=== PATIENT | female | born 1950 | race Caucasian/White ===

== ENCOUNTER 2024-03-24 09:58 | Outpatient (AMB) | payer MEDICARE, OTHER, SELFPAY ==
[2024-03-24 10:23] VITALS: BP 120/74; PULSE 60; O2SAT 98; BMI 30.7
--- NOTE | 2024-03-24 10:23 | A.OFFVIS_ITS ---
Vital Signs 03/24/24 10:23 Height 5 ft 3 in Weight 173 lb 4.533 oz BMI 30.7 BP 120/74 Blood Pressure Location Lt brachial Position Sitting Pulse 60 Pulse Oximetry (%) 98 Oxygen Delivery Method Room Air Intake Visit Reasons: Myositis/pt aware she will expedite the rec Intake Note: Patient presents today with symptoms of myositis. Accompanied by: Daughter Allergies cetirizine [From Zyrtec] Allergy (Mild, Verified 03/24/24 10:28) throat closed HPI HPI Myositis/pt aware she will expedite the rec: Details: She feels well. Occasionally she has left shoulder pain. History of adhesive capsulitis in the past. No functional limitation. No recent infections. 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 No records received from [facility]. [facility] Surgical History (Updated 03/24/24 @ 10:38 by Shyann Foley CMA) History of biopsy Family History (Updated 03/24/24 @ 10:38 by Shyann Foley CMA) Mother Stroke Father Stroke Maternal Aunt Stroke Sister Hyperthyroidism Kidney disease Social History (Updated 03/24/24 @ 10:35 by Shyann Foley CMA) Alcohol intake: current Alcohol intake frequency: holidays/special occasions only Alcohol type: wine Patient Tobacco Use Status: Never used Tobacco Use of substances other than those prescribed or required for medical reasons: No Review of Systems Const All systems reviewed & are unremarkable except as noted in HPI and below Physical Exam Vital Signs: Last Vital Signs Pulse 60 03/24/24 10:23 BP 120/74 03/24/24 10:23 Pulse Ox 98 03/24/24 10:23 Oxygen Delivery Method Room Air 03/24/24 10:23 BMI result Body Mass Index 30.7 Const Other: General: Comfortable CVS: RRR Respiratory: clear to auscultation bilaterally. Good respiratory effort Skin: No lesions seen MSK: 5/5 power upper extremity lower extremity. No synovitis. Tender right 2nd MCP. Good range of motion of upper extremity and lower extremityies. 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 Clinically stable. She has had mild elevation in muscle enzymes in the past requiring reintroduction of IVIG to maintain remission. We will obtain labs for disease monitoring this visit. Last IVIG was in October. Code(s): G72.49 - Other inflammatory and immune myopathies, not elsewhere classified Category: Medical Plan: Labs for disease and drug monitoring ordered. Patient requests labs to be done at a facility near her home. We will consider re-dosing IVIG if muscle enzymes are trending up. Medical records requested from [facility] Return to clinic in 3 months (2) Hair loss: Comment: With balding anterior frontal region of unclear etiology. We will rule out thyroid disease. Less likely necrotizing autoimmune myositis is contributing as she is clinically quiescent. I recommend dermatology evaluation if thyroid function test is normal. Code(s): L65.9 - Nonscarring hair loss, unspecified Category: Medical Plan: TSH ordered Orders: Orders Aspartate Amino Transferase Today G72.49 - Other inflammatory and immune myopathies, not elsewhere classified Erythrocyte Sedimentation Rate Today G72.49 - Other inflammatory and immune myopathies, not elsewhere classified Complete Blood Count Auto Diff Today G72.49 - Other inflammatory and immune myopathies, not elsewhere classified CK, Total+Isoenzymes, Serum Today G72.49 - Other inflammatory and immune myopathies, not elsewhere classified Creatinine Today G72.49 - Other inflammatory and immune myopathies, not elsewhere classified Alanine Aminotransferase 06/22/24 G72.49 - Other inflammatory and immune myopathies, not elsewhere classified Alanine Aminotransferase 03/14/26 G72.49 - Other inflammatory and immune myopathies, not elsewhere classified Alanine Aminotransferase 12/19/24 G72.49 - Other inflammatory and immune myopathies, not elsewhere classified Alanine Aminotransferase 09/10/26 G72.49 - Other inflammatory and immune myopathies, not elsewhere classified Alanine Aminotransferase 12/09/26 G72.49 - Other inflammatory and immune myopathies, not elsewhere classified Aldolase Today G72.49 - Other inflammatory and immune myopathies, not elsewhere classified Aldolase 03/19/25 G72.49 - Other inflammatory and immune myopathies, not elsewhere classified Aldolase 06/12/26 G72.49 - Other inflammatory and immune myopathies, not elsewhere classified CK, Total+Isoenzymes, Serum Today G72.49 - Other inflammatory and immune myopathies, not elsewhere classified CK, Total+Isoenzymes, Serum 06/22/24 G72.49 - Other inflammatory and immune myopathies, not elsewhere classified CK, Total+Isoenzymes, Serum 12/19/24 G72.49 - Other inflammatory and immune myopathies, not elsewhere classified CK, Total+Isoenzymes, Serum 03/19/25 G72.49 - Other inflammatory and immune myopathies, not elsewhere classified CK, Total+Isoenzymes, Serum 06/17/25 G72.49 - Other inflammatory and immune myopathies, not elsewhere classified CK, Total+Isoenzymes, Serum 09/15/25 G72.49 - Other inflammatory and immune myopathies, not elsewhere classified CK, Total+Isoenzymes, Serum 12/14/25 G72.49 - Other inflammatory and immune myopathies, not elsewhere classified CK, Total+Isoenzymes, Serum 03/14/26 G72.49 - Other inflammatory and immune myopathies, not elsewhere classified CK, Total+Isoenzymes, Serum 09/10/26 G72.49 - Other inflammatory and immune myopathies, not elsewhere classified CK, Total+Isoenzymes, Serum 12/09/26 G72.49 - Other inflammatory and immune myopathies, not elsewhere classified C Reactive Protein 06/22/24 G72.49 - Other inflammatory and immune myopathies, not elsewhere classified C Reactive Protein 09/20/24 G72.49 - Other inflammatory and immune myopathies, not elsewhere classified C Reactive Protein 12/19/24 G72.49 - Other inflammatory and immune myopathies, not elsewhere classified C Reactive Protein 03/19/25 G72.49 - Other inflammatory and immune myopathies, not elsewhere classified C Reactive Protein 06/17/25 G72.49 - Other inflammatory and immune myopathies, not elsewhere classified C Reactive Protein 09/15/25 G72.49 - Other inflammatory and immune myopathies, not elsewhere classified C Reactive Protein 12/14/25 G72.49 - Other inflammatory and immune myopathies, not elsewhere classified C Reactive Protein 03/14/26 G72.49 - Other inflammatory and immune myopathies, not elsewhere classified C Reactive Protein 09/10/26 G72.49 - Other inflammatory and immune myopathies, not elsewhere classified Aspartate Amino Transferase 09/20/24 G72.49 - Other inflammatory and immune myopathies, not elsewhere classified Aspartate Amino Transferase 12/19/24 G72.49 - Other inflammatory and immune myopathies, not elsewhere classified Aspartate Amino Transferase 06/17/25 G72.49 - Other inflammatory and immune myopathies, not elsewhere classified Aspartate Amino Transferase 03/14/26 G72.49 - Other inflammatory and immune myopathies, not elsewhere classified Aspartate Amino Transferase 12/09/26 G72.49 - Other inflammatory and immune myopathies, not elsewhere classified Complete Blood Count Auto Diff 06/22/24 G72.49 - Other inflammatory and immune myopathies, not elsewhere classified Complete Blood Count Auto Diff 09/20/24 G72.49 - Other inflammatory and immune myopathies, not elsewhere classified Complete Blood Count Auto Diff 12/19/24 G72.49 - Other inflammatory and immune myopathies, not elsewhere classified Complete Blood Count Auto Diff 03/19/25 G72.49 - Other inflammatory and immune myopathies, not elsewhere classified Complete Blood Count Auto Diff 03/14/26 G72.49 - Other inflammatory and immune myopathies, not elsewhere classified Creatinine 06/22/24 G72.49 - Other inflammatory and immune myopathies, not elsewhere classified Creatinine 12/19/24 G72.49 - Other inflammatory and immune myopathies, not elsewhere classified Creatinine 12/09/26 G72.49 - Other inflammatory and immune myopathies, not elsewhere classified Erythrocyte Sedimentation Rate Today G72.49 - Other inflammatory and immune myopathies, not elsewhere classified Erythrocyte Sedimentation Rate 06/22/24 G72.49 - Other inflammatory and immune myopathies, not elsewhere classified Erythrocyte Sedimentation Rate 09/20/24 G72.49 - Other inflammatory and immune myopathies, not elsewhere classified Erythrocyte Sedimentation Rate 06/17/25 G72.49 - Other inflammatory and immune myopathies, not elsewhere classified Erythrocyte Sedimentation Rate 09/15/25 G72.49 - Other inflammatory and immune myopathies, not elsewhere classified Erythrocyte Sedimentation Rate 12/14/25 G72.49 - Other inflammatory and immune myopathies, not elsewhere classified Erythrocyte Sedimentation Rate 03/14/26 G72.49 - Other inflammatory and immune myopathies, not elsewhere classified Alanine Aminotransferase Today G72.49 - Other inflammatory and immune myopathies, not elsewhere classified C Reactive Protein Today G72.49 - Other inflammatory and immune myopathies, not elsewhere classified Aldolase Today G72.49 - Other inflammatory and immune myopathies, not elsewhere classified TSH reflex Free T4 Today L65.9 - Nonscarring hair loss, unspecified Alanine Aminotransferase Today G72.49 - Other inflammatory and immune myopathies, not elsewhere classified Alanine Aminotransferase 03/19/25 G72.49 - Other inflammatory and immune myopathies, not elsewhere classified Alanine Aminotransferase 06/17/25 G72.49 - Other inflammatory and immune myopathies, not elsewhere classified Alanine Aminotransferase 09/15/25 G72.49 - Other inflammatory and immune myopathies, not elsewhere classified Alanine Aminotransferase 12/14/25 G72.49 - Other inflammatory and immune myopathies, not elsewhere classified Alanine Aminotransferase 09/20/24 G72.49 - Other inflammatory and immune m yopathies, not elsewhere classified Alanine Aminotransferase 06/12/26 G72.49 - Other inflammatory and immune myopathies, not elsewhere classified Aldolase 06/22/24 G72.49 - Other inflammatory and immune myopathies, not elsewhere classified Aldolase 09/20/24 G72.49 - Other inflammatory and immune myopathies, not elsewh ere classified Aldolase 12/19/24 G72.49 - Other inflammatory and immune myopathies, not elsewhere classified Aldolase 06/17/25 G72.49 - Other inflammatory and immune myopathies, not elsewhere classified Aldolase 09/15/25 G72.49 - Other inflammatory and immune myopathies, not elsewhere classified Aldolase 12/14/25 G72.49 - Other inflammatory and immune myopathies, not elsewhere classified Aldolase 03/14/26 G72.49 - Other inflammatory and immune myopathies, not e lsewhere classified Aldolase 09/10/26 G72.49 - Other inflammatory and immune myopathies, not elsewhere classified Aldolase 12/09/26 G72.49 - Other inflammatory and immune myopathies, not elsewhere classified Aspartate Amino Transferase Today G72.49 - Other inflammatory and immune myopathies, not elsewhere classified C Reactive Protein Today G72.49 - Other inflammatory and immune myopathies, not elsewhere classified CK, Total+Isoenzymes, Serum 09/20/24 G72.49 - Other inflammatory and immune myopathies, not elsewhere classified CK, Total+Isoenzymes, Serum 06/12/26 G72.49 - Other inflammatory and immune myopathies, not elsewhere classified C Reactive Protein 06/12/26 G72.49 - Other inflammatory and immune myopathies, not elsewhere classified C Reactive Protein 12/09/26 G72.49 - Other inflammatory and immune myopathies, not elsewhere classified Aspartate Amino Transferase 06/22/24 G72.49 - Other inflammatory and immune myopathies, not elsewhere classified Aspartate Amino Transferase 03/19/25 G72.49 - Other inflammatory and immune myopathies, not elsewhere classified Aspartate Amino Transferase 09/15/25 G72.49 - Other inflammatory and immune myopathies, not elsewhere classified Aspartate Amino Transferase 12/14/25 G72.49 - Other inflammatory and immune myopathies, not elsewhere classified Aspartate Amino Transferase 06/12/26 G72.49 - Other inflammatory and immune myopathies, not elsewhere classified Aspartate Amino Transferase 09/10/26 G72.49 - Other inflammatory and immune myopathies, not elsewhere classified Complete Blood Count Auto Diff G72.49 - Other inflammatory and immune myopathies, not elsewhere classified Complete Blood Count Auto Diff 06/17/25 G72.49 - Other inflammatory and immune myopathies, not elsewhere classified Complete Blood Count Auto Diff 09/15/25 G72.49 - Other inflammatory and immune myopathies, not elsewhere classified Complete Blood Count Auto Diff 12/14/25 G72.49 - Other inflammatory and immune myopathies, not elsewhere classified Complete Blood Count Auto Diff 06/12/26 G72.49 - Other inflammatory and immune myopathies, not elsewhere classified Complete Blood Count Auto Diff 09/10/26 G72.49 - Other inflammatory and immune myopathies, not elsewhere classified Complete Blood Count Auto Diff 12/09/26 G72.49 - Other inflammatory and immune myopathies, not elsewhere classified Creatinine Today G72.49 - Other inflammatory and immune myopathies, not elsewhere classified Creatinine 09/20/24 G72.49 - Other inflammatory and immune myopathies, not elsewhere classified Creatinine 03/19/25 G72.49 - Other inflammatory and immune myopathies, not elsewhere classified Creatinine 06/17/25 G72.49 - Other inflammatory and immune myopathies, not elsewhere classified Creatinine 09/15/25 G72.49 - Other inflammatory and immune myopathies, not elsewhere classified Creatinine 12/14/25 G72.49 - Other inflammatory and immune myopathies, not elsewhere classified Creatinine 03/14/26 G72.49 - Other inflammatory and immune myopathies, not elsewhere classified Creatinine 06/12/26 G72.49 - Other inflammatory and immune myopathies, not elsewhere classified Creatinine 09/10/26 G72.49 - Other inflammatory and immune myopathies, not elsewhere classified Erythrocyte Sedimentation Rate 12/19/24 G72.49 - Other inflammatory and immune myopathies, not elsewhere classified Erythrocyte Sedimentation Rate 03/19/25 G72.49 - Other inflammatory and immune myopathies, not elsewhere classified Erythrocyte Sedimentation Rate 06/12/26 G72.49 - Other inflammatory and immune myopathies, not elsewhere classified Erythrocyte Sedimentation Rate 09/10/26 G72.49 - Other inflammatory and immune myopathies, not elsewhere classified Erythrocyte Sedimentation Rate 12/09/26 G72.49 - Other inflammatory and immune myopathies, not elsewhere classified Coding Level of Care Code Est Pt Level 4 (32594) Complex EM visit Add On G2211 Diagnoses Autoimmune necrotizing myopathy G72.49 Hair loss L65.9
== END 2024-03-24 11:17 | disposition home or self-care (01) ==
PROVIDERS: PCP Family Medicine; Visit Provider Internal Medicine Rheumatology
DX: G72.49 Other inflammatory and immune myopathies, not elsewhere classified (principal); L65.9 Nonscarring hair loss, unspecified
CPT/HCPCS: 99214; G2211

== ENCOUNTER → 2024-03-24 09:58 | Outpatient (BNVA) | payer MEDICARE, OTHER, SELFPAY | PROVIDERS: PCP Family Medicine; Visit Provider Internal Medicine Rheumatology | DX: G72.49 Other inflammatory and immune myopathies, not elsewhere classified (principal); L65.9 Nonscarring hair loss, unspecified | CPT/HCPCS: 99212 ==

== ENCOUNTER 2024-04-04 09:39 | Outpatient (REF) | payer MEDICARE, OTHER, SELFPAY ==
[2024-04-04 11:20] LABS: MANUAL DIFF FLAG NO
[2024-04-04 11:23] LABS: Basophils Absolute Auto 0.1 X10*3/uL (0.0-0.2); Eosinophils Absolute Auto 0.2 X10*3/uL (0.0-0.4); Eosinophils Percent Auto 2.7 % (0-4); Hemoglobin 14.1 g/dl (12.0-16.0); Imm Gran Abs Auto 0.02 X10*3/uL (0.00-0.03); Imm Gran Pct Auto 0.3 % (0.0-0.4); Lymphocytes Absolute Auto 2.1 X10*3/uL (1.2-4.9); Lymphocytes Percent Auto 34.6 % (20-40); Mean Corpuscular HGB Conc 33.6 g/dl (31.0-35.0); Mean Corpuscular Hemoglobin 31.7 pg (27.0-33.0); Mean Corpuscular Volume 94.4 fL (80.0-98.0); Mean Platelet Volume 11.1 fL (9.4-12.3); Monocytes Absolute Auto 0.6 X10*3/uL (0.1-1.2); Monocytes Percent Auto 10.1 % (2-11); Neutrophils Percent Auto 51.3 % (45-73); Platelet Count 238 X10*3/uL (160-400); Red Blood Count 4.45 X10*6/uL (4.20-5.50); Red Cell Distribution Width 12.6 % (11.0-16.0); White Blood Count 5.9 X10*3/uL (4.8-10.8)
[2024-04-04 12:01] LABS: Erythrocyte Sedimentation Rate 10 MM/HR (0-20)
[2024-04-04 12:12] LABS: Alanine Aminotransferase 22 U/L (0-31); Aspartate Amino Transferase 28 U/L (5-31); C Reactive Protein 0.24 mg/dL (< or = 0.50); Estimated Glomerular Filt Rate 45
[2024-04-07 21:48] LABS: Aldolase 5.1 U/L (<=8.1)
[2024-04-13 23:28] LABS: CK-BB None Detected (None Detected); CK-MB 0 % (<5); CK-MM 95 % (95-100); Creatine Kinase Isoenzyme Itrp MACRO CK TYPE 1; Creatine Kinase,Total,Serum 297 U/L (29-143)
== END 2024-04-04 09:40 | disposition home or self-care (01) ==
LOC: HO.WFDLDS 09:39
PROVIDERS: Visit Provider Internal Medicine Rheumatology
DX: G72.49 Other inflammatory and immune myopathies, not elsewhere classified (principal); L65.9 Nonscarring hair loss, unspecified
CPT/HCPCS: 36415; 82085; 82552; 82565; 84443; 84450; 84460; 85025; 85652; 86140

== ENCOUNTER 2024-06-22 13:04 | Outpatient (REF) | payer MEDICARE, OTHER, SELFPAY ==
--- OUTSIDE RECORDS SUMMARY | 2024-06-22 13:16 | XMS_ITS | Continuity of Care Document ---
Author Organization [facility] Address [address] [address]- [facility] Name Relationship Address Phone YANNI POPE Other Unknown Unavailable LEYDA CATALAN child Unknown Unavailable NIKO, LEYDA child Unknown Unavailable Care Team Providers Care Door To Door Fundraising Collector Name Role Phone Alfie PEREYRA, Gerardo Hall Primary Care Physician Encounter [facility] Date(s): 06/07/24 - 06/14/[address] [id number] Attending Physician: Luci Cantrell MD Admitting Physician: Luci Cantrell MD Referring Physician: Luci Cantrell MD Encounter Type: Office Visit Allergies, Adverse Reactions, Alerts Substance Criticality Severity Reaction Reaction Severity Status ZyrTEC throat closing Activ e Immunizations Given and Recorded Vaccine Date Status Refusal Reason influenza virus vaccine, inactivated 1 01/31/22 Re corded influenza virus vaccine, inactivated 02/06/21 Ash rded influenza virus vaccine, inactivated 01/14/18 Ash rded influenza virus vaccine, inactivated 02/29/16 Ash rded influenza virus vaccine, inactivated 02/01/15 Ash rded influenza virus vaccine, inactivated 03/13/14 Ash rded influenza virus vaccine, inactivated 02/11/13 Ash rded influenza virus vaccine, inactivated 05/12/12 Ash rded influenza virus vaccine, inactivated 02/27/10 Ash rded influenza virus vaccine, inactivated 01/24/09 Ash rded influenza virus vaccine, inactivated 02/01/08 Ash rded SARS-CoV-2 (COVID-19) mRNA-1273 vaccine 03/22/21 R ecorded SARS-CoV-2 (COVID-19) mRNA-1273 vaccine 07/27/20 G iven SARS-CoV-2 (COVID-19) mRNA-1273 vaccine 07/27/20 R ecorded SARS-CoV-2 (COVID-19) mRNA-1273 vaccine 06/29/20 G iven SARS-CoV-2 (COVID-19) mRNA-1273 vaccine 06/29/20 R ecorded tetanus-diphtheria toxoids (Td) 02/02/20 Recorded tetanus-diphtheria toxoids (Td) 10/31/04 Recorded pneumococcal 13-valent vaccine 08/24/15 Recorded pneumococcal 23-valent vaccine 03/22/14 Recorded Zoster Vaccine Live 02/11/13 Recorded Influenza Virus Vaccine (oldterm) 06/12/11 Recorde d tetanus/diphtheria/pertussis, acel(Tdap) 06/12/11 Recorded 1Result Comment: [facility]# [id number] Medications amLODIPine 2.5 mg oral tablet 2.5 mg, 1, tablet, By Mouth, Daily, # 90 tablet, Refills 3, Tot. Refills 3, Maintenance, 06/07/24 9:08:00 AM EST, Route to Pharmacy Electronically, [facility], Partial fill upon patient request if the prescription is for a schedule II opioid drug., 160, cm, 06/07/24 8:58:00 EST, Height, 75.6, kg, 11/04/23 10:25:00 EDT, Dry Weight Start Date: 06/07/24 Status: Ordered Quantity: 90.0 Unit: tablet Repeat number: 4 Aspirin Low Dose 81 mg oral delayed release tablet 1 tablet = 81 mg, By Mouth, Daily, # 30 tablet, 0 Refills, Maintenance, 09/05/20 8:56:00 AM EDT, [facility] Tablet, Partial fill upon patient request if the prescription is for a schedule II opioid drug. Start Date: 09/05/20 Status: Ordered Quantity: 30.0 Unit: tablet Repeat number: 1 D3 with Calcium 0 Refills, Maintenance, 01/20/22 1:48:00 PM EDT, Partial fill upon patient request if the prescription is for a schedule II opioid drug. Start Date: 01/20/22 Status: Ordered Repeat number: 1 lisinopril 40 mg oral tablet 1 tablet, By Mouth, Daily, # 90 tablet, 1 Refills, Maintenance, 03/14/24 7:11:00 PM EST, [facility], 160, cm, 09/30/23 13:20:00 EDT, Height, 75.6, kg, 11/04/23 10:25:00 EDT, Dry Weight Start Date: 03/14/24 Status: Ordered Quantity: 90.0 Unit: tablet Repeat number: 1 Multivitamin Daily, 0 Refills, Maintenance, 09/05/20 8:56:00 AM EDT, Partial fill upon patient request if the prescription is for a schedule II opioid drug. Start Date: 09/05/20 Status: Ordered Repeat number: 1 ondansetron 4 mg oral tablet 1 tablet = 4 mg, By Mouth, Every 8 hours, PRN Nausea & Vomiting, # 20 tablet, 0 Refills, Maintenance, 05/23/22 4:33:00 PM EST, Tablet, [facility]/pharmacy #[id number], Partial fill upon patient request if the prescription is for a schedule II opioid drug., 160, cm, 05/14/22 16:29:00 EST, Height, 68.6, kg, 05/23/22 11:12:00 EST, Dry Weight Start Date: 05/23/22 Status: Ordered Quantity: 20.0 Unit: tablet Repeat number: 1 Toprol XL 25 mg oral tablet, extended release 25 mg, 1, tablet, By Mouth, Daily, # 90 tablet, Refills 3, Tot. Refills 3, Maintenance, 07/07/23 2:29:00 PM EST, Route to Pharmacy Electronically, [facility]/pharmacy #[id number], Partial fill upon patient request if the prescription is for a schedule II opioid drug., 160, cm, 06/18/23 12:34:00 EST, Height, 68.2,kg, 06/02/22 1:13:00 EST, Dry Weight Start Date: 07/07/23 Status: Ordered Quantity: 90.0 Unit: tablet Repeat number: 4 Zetia 10 mg oral tablet 1 tablet = 10 mg, By Mouth, Daily, # 90 tablet, 3 Refills, Maintenance, 06/08/24 12:58:00 PM EST, Tablet, [facility], Partial fill upon patient request if the prescription is fora schedule II opioid drug., 160, cm, 06/07/24 8:58:00 EST, Height, 75.6, kg, 11/04/23 10:25:00 EDT,Dry Weight Start Date: 06/08/24 Status: Ordered Quantity: 90.0 Unit: tablet Repeat number: 4 Problem List Condition Confirmation Course Effective Dates Status H ealth Status Informant Anxiety Confirmed Active Autoimmune myopathy Confirmed Active Hyperlipidemia Confirmed Active Hypertension Confirmed Active Obese class I Confirmed Active Osteoporosis Confirmed Active Vital Signs Most recent to oldest [Reference Range]: 1 Height 160 cm (06/07/24 8:58 AM) Weight 78.0 kg (06/07/24 8:58 AM) Oxygen Saturation [94-100 %] 98 % (06/07/24 8:58 AM) Pulse Rate [55-90 bpm] 66 bpm (06/07/24 8:58 AM) Body Mass Index [18.5-24.99 kg/m2] 30.47 kg/m2 *>HHI* (06/07/24 8:58 AM) Blood Pressure [90-138/55-84 mm Hg] 147/ 59mm Hg *H* (06/07/24 8:58 AM) Mode of Delivery (Oxygen) Room air (06/07/24 8:58 AM) Blood pressure sites Arm, left (06/07/24 8:58 AM) Weight Obtained Via Standing scale (06/07/24 8:58 AM) Social History Social History Type Response Smoking Status Never (less than 100 in lifetime) entered on: 09/05/20 Sex Sex Representation Female (finding) Cardiology Outpatient Note * Tamia PEREYRA, Luci Griffith: PERFORM Event Display: Cardiology Note Office Authored Date: [id number] Patient: ??HOSSEIN, TATI ? Age:??73 Years?Sex:??Female?:??1950?? Patient Hx Cardiology Shared Clinical Summary 1.?? Hypertension 2. ??Hyperlipidemia 3. ??Prior evaluation for palpitations with Holter showing PACs/PVCs and??10/2020 4.?? 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 Gagnon 5.?? CAD: NSTEMI with cardiac cath 01/23 with mild non obstructive CAD. History of Present Illness/Interval History ?? 72 yo female with the above history who is here for cardiology follow up. She had a syncopal spell last year and she was thought to be dehydrated aggravated by amlodipine. She is not on statin 2/2myositis. She is doing well from a cardiac standpoint. BP is??well controlled.??She is not having no cardiac sx for the most part but is occasionally having some BALL. She is walking 30 min each morning and additional 30 min throughout??the day. No difficultly during exercise.? Physical Exam Vitals & Measurements HR:??66??(Peripheral)?? BP:??147/59?? SpO2:??98%?? HT:??160??cm?? WT:??78.0??kg?? BMI:??30.47?? Weight lb/oz: 171 lb 15 oz General:??In no acute distress HEENT:??Sclerae anicteric, mucous membranes moist Cardiovascular:?Regular rhythm, normal first and second heart sounds.?No murmurs or gallops.?No JVP??Respiratory:?Clear to auscultation all lung hubbard?? Extremities: Warm,??noedema Neuro:??Nonfocal??Psych: Alert and oriented with appropriate affect. ?? LFT's normal 12/24, cre??1.1 GFR 45. Assessment/Plan HLD (hyperlipidemia) Ordered: Basic Metabolic Panel Lipid Panel ?? Orders: Amlodipine, 2.5 mg, 1, tablet, By Mouth, Daily, # 90 tablet, Refills 3, Tot. Refills 3, Maintenance, 06/07/24 9:08:00 EST, Route to Pharmacy Electronically, [facility], Partialfill upon patient request if the prescription is for a schedule... Follow up Appointment ?? # CAD:??Minimal disease in LAD and minimal luminal irregularities elsewhere by cath 01/2022.?? Noangina or dyspnea. Continue metoprolol succinate 25mg once daily and ASA 81mg once daily.?? Not on statin due to myositis. Trops ultimately thought to be due myositis. ?? # HTN: elevated today agreeable to add amlodipine 2.5 mg daily, She will follow bp at home.? # HLD: no recent labs, agreeable to labs ?? Plan amlodipine 2.5 mg daily labs, I will call and see if we should do zetia??or [id number] f/u 6 months Total Time Spent I personally spent a total of??20 minutes, including both qops-bw-wuyo and vof-eblv-ke-face time onthe date of the encounter, addressing the above diagnoses. Activities performed in this time include chart review, obtaining / reviewing history, performing amedically necessary evaluation, documentation and Ordering of Appropriate tests including medical decision making of Moderate Complexity (30-39 minutes for established patient) Problem List/Past Medical History Ongoing Anxiety Autoimmune myopathy Hyperlipidemia Hypertension Obese class I Osteoporosis Procedure/Surgical History Colonoscopy: 2011 Tonsillectomy: 1950 Tonsillectomy: 1950 Home Medications amLODIPine 2.5 mg oral tablet, 2.5 mg= 1 tablet, By Mouth, Daily, 3 refills Aspirin Low Dose 81 mg oral delayed release tablet, 81 mg= 1 tablet, By Mouth, Daily D3 with Calcium lisinopril 40 mg oral tablet, 1 tablet, By Mouth, Daily Multivitamin, Daily ondansetron 4 mg oral tablet, 4 mg= 1 tablet, By Mouth, Every 8 hours, PRN Toprol XL 25 mg oral tablet, extended release, 25 mg= 1 tablet, By Mouth, Daily, 3 refills Diagnostic Impression ECG ECG 12-Lead ?? 12:32:41 Please click on pdf link to open report ?? Signed By: Lori Joseph MD ?? ECG 12-Lead ?? 12:32:41 Ventricular Rate: 59 BPM Atrial Rate: 59 BPM P-R Interval: 162 ms QRS Duration: 80 ms Q-T Interval: 434 ms QTC Calculation(Bazett): 429 ms P [employer]: 33 degrees R [employer]: 25 degrees T [employer]: 35 degrees Sinus bradycardia Otherwise normal ECG When compared with ECG of 01-JUN-2022 19:23, No significant change was found Confirmed ?? Signed By: Jake MD, Lori A Stress Test No qualifying data available. Echo Echocardiogram - Complete ?? 08:00:18 Summary Normal left ventricular size and function with ejection fraction of 60-65%. No focal wall motion abnormalities. The left ventricular wall thickness is mildly increased. Normal right ventricular size and function. No significant valvular disease. ?? Comparison No prior study available for comparison. ?? Signature ?? Signed By: Phil Lee MD Note * Maricruz Madrid: PERFORM Event Display: Patient Education/Instruction Authored Date: Ambulatory Adult Visit Summary [facility] Office [address] [place] [address] Name: TATI CATALAN : 1950?? Visit: 06/07/2024 08:42?? Ambulatory Visit Instructions ?? Your Care Team Primary Care Provider Alfie PEREYRA, Gerardo Hall? This Visit Provider Luci Cantrell MD Your Diagnosis HLD (hyperlipidemia) Vitals Signs Pulse Rate: 66 bpm Height: 160 cm Systolic Blood Pressure:??147 mm Hg??High Weight: 78 kg Diastolic Blood Pressure: 59 mm Hg Body Mass Index:??30.47 kg/m2??Critical Oxygen Saturation: 98 % Body surface area: 1.86 What to do next Follow-Up Appointments Follow up Appointment - Ordered?-- 6 months, 06/07/24 9:11:00 EST Future Orders Comprehensive Metabolic Panel - Once, *Est. 12/17/23 +/- 28 days, Single or Recurring Future Order?? Basic Metabolic Panel - Routine, Once, 06/07/24 9:00:00 EST, Order for Today, [facility], Blood?? Lipid Panel - Routine, Once, 06/07/24 9:00:00 EST, Order for Today, [facility], Blood?? Medications The list below reflects the information in our records and provided by you today along with any changes made during this visit. Please continue your medications until treatment is completed or stopped by your provider. If this is different from the information you have or there are other questions,please contact the prescribing provider. What How Much When Instructions New Amlodipine (amLODIPine 2.5 mg oral tablet) 1 tab(s) Oral Daily Refills: 3 Pickup at [facility] Unchanged Aspirin (Aspirin Low Dose 81 mg oral delayed release tablet) 1 tab(s) Oral Daily Unchanged Calcium And Vitamin D Combination (D3 with Calcium) Unchanged Lisinopril (lisinopril 40 mg oral tablet) 1 tab(s) Oral Daily Unchanged Metoprolol (Toprol XL 25 mg oral tablet, extended release) 1 tab(s) Oral Daily Unchanged Multivitamin Daily Unchanged Ondansetron (ondansetron 4 mg oral tablet) 1 tab(s) Oral Every 8 hours as needed for Nausea & Vomiting Pharmacy Information [facility]: [address] [facility] [address] [phone] ?? What How Much When Comments Stop Taking Alendronate (alendronate 70 mg oral tablet) 1 tab(s) Oral Every week Duration: 90 Days Test Performed Below is a partial list of the tests performed during your Visit. You may have had other tests and procedures not included in this list. Please discuss all test results with your provider. Basic Metabolic Panel?-- Results Pending -- Lipid Panel?-- Results Pending -- Medications and Immunizations Administered Medications Given During Visit No medications given during this visit.?? Allergies (NKA means No Known Allergies) ZyrTEC??(throat closing) Common Emergency Awareness Tips IS IT A STROKE? Act FAST and Check for these signs: FACE Does the face look uneven? ARM Does one arm drift down? SPEECH Does their speech sound strange? TIME Call at any sign of stroke ?? Heart Attack Signs Chest discomfort: Most heart attacks involve discomfort in the center of the chest and lasts more than a few minutes, or goes away and comes back. It can feel like uncomfortable pressure, squeezing, fullness or pain. Discomfort in upper body: Symptoms can include pain or discomfort in one or both arms, back, neck, jaw or stomach. Shortness of breath: With or without discomfort. Other signs: Breaking out in a cold sweat, nausea, or lightheaded. Remember, MINUTES DO MATTER. If you experience any of these heart attack warning signs, call to get immediate medical attention! ?? Smoking can increase your chances of developing chronic health problems and can cause harmful effects to other family members in your house. If you smoke, you are strongly encouraged to quit. Please call [employer] at [phone] or [phone] ([phone]) or log in to [email or web address] for referrals to smoking cessation programs. ?? The National Suicide Prevention Hotline is available 24/11 if you or someone you know needs to find a reason to keep living. By calling 3-585-887-[place] (5227) you'll be connected to a skilled, trained counselor at a crisis center in your area. [facility] Portal You can view and manage your care through the patient portal or by using a health care isabel of your choosing. [employer] is a website that allows you to securely view your medical information including your hospital discharge summary, office visit summaries, medications and follow-up visits. You can also request appointments, renew medications, and request access to your medical information using a health care isabel of your choosing, or just ask a question. You can enroll at [email or web address] or register during your next office visit. [facility], in keeping with [facility] guidance, no longer requires face masks for staff, patientsor visitors in most situations. Similiar to time spent indoors at other locations, there is the chance that you were exposed to repiratory viruses during your time with us (such as flu or COVID-19). If you develop symptoms concerning for a viral respiratory infection, please seek testing (and treatment if indicated) from your medical provider or home test kit. ?? Disclaimer: The information provided is of a general nature and is intended to be used in conjunction with the recommendations and advice of your health care practitioner. Every effort has been made to ensure that the information provided is accurate and complete at the time it is provided to you however, as your needs change, or, as new information becomes available, different or additional instructions may be required. ?? If you have questions, please consult with your primary care provider or pharmacist, as appropriate. This information is not intended to serve as substitution for assessment and evaluation by a qualified health care provider. If you do not have a primary care provider, you may find a [facility] provider by calling [employer] at [phone]. Patient Care team information Care Team Personnel Name: Gerardo Judge MD Position: [facility] Physician - Primary Care Member Role: PCP Address: [address] [place] [address] Telecom: Name: Diya Quinones RN Position: [facility] RN Member Role: Primary Care Nurse Name: Batsheva Márquez RN Position: [facility] RN Member Role: Primary Care Nurse Name: Emi Gar RN Position: [facility] AMB Nurse Member Role: Primary Care Nurse Care Team Related Persons Name: AYNNI POPE Name: LEYDA POPE Insurance Providers Guarantor name[facility] Plan Information #: 2 Payer: [facility] Member Number: [id number] Policy Number: NA Group Number: [id number] Health Plan Information #: 1 Payer: MEDICARE PART B OUTPT Member Number: [id number] Policy Number: NA Group Number: NA
[2024-06-22 14:17] LABS: MANUAL DIFF FLAG NO
[2024-06-22 14:25] LABS: Basophils Percent Auto 0.6 % (0-2); Eosinophils Absolute Auto 0.2 X10*3/uL (0.0-0.4); Eosinophils Percent Auto 2.2 % (0-4); Hematocrit 42.9 % (37.0-47.0); Hemoglobin 14.3 g/dl (12.0-16.0); Imm Gran Abs Auto 0.02 X10*3/uL (0.00-0.03); Imm Gran Pct Auto 0.3 % (0.0-0.4); Lymphocytes Percent Auto 30.1 % (20-40); Mean Corpuscular HGB Conc 33.3 g/dl (31.0-35.0); Mean Corpuscular Hemoglobin 31.4 pg (27.0-33.0); Mean Corpuscular Volume 94.3 fL (80.0-98.0); Mean Platelet Volume 11.5 fL (9.4-12.3); Monocytes Absolute Auto 0.5 X10*3/uL (0.1-1.2); Monocytes Percent Auto 7.6 % (2-11); Neutrophils Percent Auto 59.2 % (45-73); Platelet Count 227 X10*3/uL (160-400); Red Blood Count 4.55 X10*6/uL (4.20-5.50); Red Cell Distribution Width 12.2 % (11.0-16.0); White Blood Count 6.7 X10*3/uL (4.8-10.8)
[2024-06-22 15:01] LABS: Alanine Aminotransferase 41 U/L (0-31); Aspartate Amino Transferase 39 U/L (5-31); Estimated Glomerular Filt Rate 42
[2024-06-22 15:06] LABS: Erythrocyte Sedimentation Rate 9 MM/HR (0-20)
[2024-06-26 21:33] LABS: CK-BB None Detected (None Detected); CK-MB 0 % (<5); CK-MM 95 % (95-100); Creatine Kinase Isoenzyme Itrp MACRO CK TYPE 1; Creatine Kinase,Total,Serum 545 U/L (18-225)
== END 2024-06-22 13:05 | disposition home or self-care (01) ==
LOC: HO.WFDLDS 13:04
PROVIDERS: Visit Provider Internal Medicine Rheumatology
DX: G72.49 Other inflammatory and immune myopathies, not elsewhere classified (principal)
CPT/HCPCS: 36415; 82085; 82552; 82565; 84450; 84460; 85025; 85652; 86140

== ENCOUNTER 2024-06-30 13:07 | Outpatient (AMB) | payer MEDICARE, OTHER, SELFPAY ==
--- NOTE | 2024-06-30 13:30 | MHC.OFFVIS ---
Vital Signs 06/30/24 13:33 Height 5 ft 3 in Weight 168 lb 6.931 oz BMI 29.8 BP 110/62 Blood Pressure Location Lt radial Position Sitting Pulse 56 Pulse Source Pulse Oximeter Pulse Oximetry (%) 98 Oxygen Delivery Method Room Air Intake Visit Reasons: 3 mo follow up Intake Note: pt presents today for Autoimmune necrotizing myopathy follow up. Allergies cetirizine [[facility]] Allergy (Mild, Verified 03/24/24 10:28) throat closed HPI HPI 3 mo follow up: Details: She feels well. She denies dyspnea, rash, dysphagia, weakness. She has morning stiffness in the morning but it is minimal and she is able to get up and go about her day. PFS Surgical History (Updated 03/24/24 @ 10:38 by Shyann Foley CMA) History of biopsy Family History (Updated 03/24/24 @ 10:38 by Shyann Foley CMA) Mother Stroke Father Stroke Maternal Aunt Stroke Sister Hyperthyroidism Kidney disease Social History (Updated 03/24/24 @ 10:35 by Shyann Foley CMA) Alcohol intake: current Alcohol intake frequency: holidays/special occasions only Alcohol type: wine Patient Tobacco Use Status: Never used Tobacco Review of Systems Const All systems reviewed & are unremarkable except as noted in HPI and below Physical Exam Vital Signs: Last Vital Signs Pulse 56 06/30/24 13:33 BP 110/62 06/30/24 13:33 Pulse Ox 98 06/30/24 13:33 Oxygen Delivery Method Room Air 06/30/24 13:33 BMI result Body Mass Index 29.8 Const Other: General: Comfortable CVS: RRR Respiratory: clear to auscultation bilaterally. Good respiratory effort Skin: No lesions seen MSK: 5/5 power upper extremity power. 4/5 hip and knee flexors and extensors, ankle flexors and extensors power is 5/5. No synovitis. Good range of motion of upper extremity and lower extremityies. Assessment & Plan Assessment & Plan (1) Autoimmune necrotizing myopathy: Comment: She has had mild relapse off of IVIG. 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 We discussed next steps in treatment for mild disease. I am avoiding methotrexate due to concurrent mild transaminitis. Discussed side effects, benefits and drug monitoring on mycophenolate mofetil. If disease progresses or if she has side effects on mycophenolate mofetil, she will need to restart IVIG. Azathioprine is another option for mild disease. 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 High dose prednisone caused facial flushing and was discontinued. She has had elevation in liver enzymes at initial presentation secondary to myositis. Code(s): G72.49 - Other inflammatory and immune myopathies, not elsewhere classified Category: Medical Plan: TB and hepatitis panel ordered. After results are back, I will send mycophenolate mofetil 500 mg twice a day. She will then need labs for drug monitoring 1 month after starting mycophenolate mofetil Return to clinic in 3 months (2) Hair loss: Comment: With balding anterior frontal region of unclear etiology. We will rule out thyroid disease. Less likely necrotizing autoimmune myositis is contributing as she is clinically quiescent. I recommend dermatology evaluation if thyroid function test is normal. Code(s): L65.9 - Nonscarring hair loss, unspecified Category: Medical Plan: TSH ordered Orders: Orders T Spot TB 06/30/24 G72.49 - Other inflammatory and immune myopathies, not elsewhere classified Creatine Kinase Total 1 Month G72.49 - Other inflammatory and immune myopathies, not elsewhere classified Complete Blood Count Auto Diff 1 Month Z79.60 - termination clerk (current) use of unspecified immunomodulators and immunosuppressants Erythrocyte Sedimentation Rate 1 Month G72.49 - Other inflammatory and immune myopathies, not elsewhere classified C Reactive Protein 1 Month G72.49 - Other inflammatory and immune myopathies, not elsewhere classified Hepatitis B,C Profile 06/30/24 G72.49 - Other inflammatory and immune myopathies, not elsewhere classified Aldolase 1 Month G72.49 - Other inflammatory and immune myopathies, not elsewhere classified Alanine Aminotransferase 1 Month Z79.60 - termination clerk (current) use of unspecified immunomodulators and immunosuppressants Aspartate Amino Transferase 1 Month Z79.60 - [facility]FP (current) use of unspecified immunomodulators and immunosuppressants Creatinine 1 Month Z79.60 - termination clerk (current) use of unspecified immunomodulators and immunosuppressants Medications: New mycophenolate mofetil 500 mg PO BID 60 tabs 0RF Coding Level of Care Code Est Pt Level 4 (60999) Complex EM visit Add On G2211 Diagnoses Autoimmune necrotizing myopathy G72.49 Hair loss L65.9
[2024-06-30 13:33] VITALS: BP 110/62; PULSE 56; O2SAT 98; BMI 29.8
== END 2024-06-30 14:14 | disposition home or self-care (01) ==
PROVIDERS: PCP Family Medicine; Visit Provider Internal Medicine Rheumatology
DX: G72.49 Other inflammatory and immune myopathies, not elsewhere classified (principal); L65.9 Nonscarring hair loss, unspecified
CPT/HCPCS: 99214; G2211

== ENCOUNTER 2024-06-30 13:07 | Outpatient (REF) | payer MEDICARE, OTHER, SELFPAY ==
[2024-07-01 07:58] LABS: HBS Num1 6.17 mIU/mL (0-7.99); HBc Num1 0.26 S/CO (0.00-0.79); HBsAGNum1 0.35 S/CO (0.00-0.99); Hepatitis B Core Antibody Nonreactive (Nonreactive); Hepatitis B Surface Antigen Negative (Negative); ~HepC Num1 0.11 S/CO (0.00-0.79); ~Hepatitis B Surface Antibody NONREACTIVE (Nonreactive); ~Hepatitis C Antibody Nonreactive (Nonreactive)
[2024-07-03 13:48] LABS: TS Negative Control Passed; TS Panel A 0; TS Panel B 0; TS Positive Control Passed; TSpotTB Negative (Negative)
== END 2024-06-30 13:08 | disposition home or self-care (01) ==
LOC: HO.HKASLDS 13:07
PROVIDERS: PCP Family Medicine; Visit Provider Internal Medicine Rheumatology
DX: G72.49 Other inflammatory and immune myopathies, not elsewhere classified (principal); L65.9 Nonscarring hair loss, unspecified; Z79.60 Long term (current) use of unspecified immunomodulators and immunosuppressants; Z11.7 Encounter for testing for latent tuberculosis infection; Z11.59 Encounter for screening for other viral diseases; Z72.89 Other problems related to lifestyle
CPT/HCPCS: 36415; 86481; 86704; 86706; 86803; 87340; 99212

== ENCOUNTER 2024-08-03 11:47 | Outpatient (REF) | payer MEDICARE, OTHER, SELFPAY ==
[2024-08-03 14:12] LABS: MANUAL DIFF FLAG NO
[2024-08-03 14:22] LABS: Basophils Absolute Auto 0.1 X10*3/uL (0.0-0.2); Basophils Percent Auto 0.7 % (0-2); Eosinophils Absolute Auto 0.1 X10*3/uL (0.0-0.4); Eosinophils Percent Auto 0.8 % (0-4); Hematocrit 41.8 % (37.0-47.0); Hemoglobin 13.9 g/dl (12.0-16.0); Imm Gran Abs Auto 0.04 X10*3/uL (0.00-0.03); Imm Gran Pct Auto 0.4 % (0.0-0.4); Lymphocytes Percent Auto 22.3 % (20-40); Mean Corpuscular HGB Conc 33.3 g/dl (31.0-35.0); Mean Corpuscular Hemoglobin 31.7 pg (27.0-33.0); Mean Corpuscular Volume 95.2 fL (80.0-98.0); Monocytes Absolute Auto 0.7 X10*3/uL (0.1-1.2); Monocytes Percent Auto 7.6 % (2-11); Neutrophils Absolute Auto 6.2 x10*3/uL (2.0-8.3); Neutrophils Percent Auto 68.2 % (45-73); Platelet Count 273 X10*3/uL (160-400); Red Blood Count 4.39 X10*6/uL (4.20-5.50); Red Cell Distribution Width 12.4 % (11.0-16.0); White Blood Count 9.1 X10*3/uL (4.8-10.8)
[2024-08-03 14:45] LABS: Alanine Aminotransferase 23 U/L (0-31); Aspartate Amino Transferase 31 U/L (5-31); Estimated Glomerular Filt Rate 55
[2024-08-03 15:20] LABS: Erythrocyte Sedimentation Rate 10 MM/HR (0-20)
[2024-08-08 03:39] LABS: Aldolase 6.7 U/L (<=8.1)
== END 2024-08-03 11:48 | disposition home or self-care (01) ==
LOC: HO.WFDLDS 11:47
PROVIDERS: Visit Provider Internal Medicine Rheumatology
DX: G72.49 Other inflammatory and immune myopathies, not elsewhere classified (principal); Z79.60 Long term (current) use of unspecified immunomodulators and immunosuppressants
CPT/HCPCS: 36415; 82085; 82550; 82565; 84450; 84460; 85025; 85652; 86140

== ENCOUNTER 2024-09-20 10:37 | Outpatient (REF) | payer MEDICARE, OTHER, SELFPAY ==
[2024-09-20 14:23] LABS: MANUAL DIFF FLAG NO
[2024-09-20 14:27] LABS: Basophils Percent Auto 0.7 % (0-2); Eosinophils Absolute Auto 0.1 X10*3/uL (0.0-0.4); Eosinophils Percent Auto 1.2 % (0-4); Hematocrit 41.2 % (37.0-47.0); Hemoglobin 13.6 g/dl (12.0-16.0); Imm Gran Abs Auto 0.01 X10*3/uL (0.00-0.03); Imm Gran Pct Auto 0.2 % (0.0-0.4); Lymphocytes Absolute Auto 1.6 X10*3/uL (1.2-4.9); Lymphocytes Percent Auto 28.3 % (20-40); Mean Corpuscular Hemoglobin 31.1 pg (27.0-33.0); Mean Corpuscular Volume 94.1 fL (80.0-98.0); Mean Platelet Volume 11.4 fL (9.4-12.3); Monocytes Absolute Auto 0.5 X10*3/uL (0.1-1.2); Neutrophils Absolute Auto 3.5 x10*3/uL (2.0-8.3); Neutrophils Percent Auto 61.6 % (45-73); Platelet Count 220 X10*3/uL (160-400); Red Blood Count 4.38 X10*6/uL (4.20-5.50); Red Cell Distribution Width 12.2 % (11.0-16.0); White Blood Count 5.6 X10*3/uL (4.8-10.8)
[2024-09-20 14:36] LABS: Alanine Aminotransferase 22 U/L (0-31); Aspartate Amino Transferase 34 U/L (5-31); C Reactive Protein < 0.10 mg/dL (< or = 0.50); Estimated Glomerular Filt Rate 53
[2024-09-20 15:02] LABS: Erythrocyte Sedimentation Rate 7 MM/HR (0-20)
[2024-09-24 03:59] LABS: Aldolase 6.2 U/L (<=8.1)
[2024-09-27 23:04] LABS: CK-BB None Detected (None Detected); CK-MB 3 % (<5); CK-MM 91 % (95-100); Creatine Kinase Isoenzyme Itrp MACRO CK TYPE 1; Creatine Kinase,Total,Serum 421 U/L (18-225)
== END 2024-09-20 10:38 | disposition home or self-care (01) ==
LOC: HO.WFDLDS 10:37
PROVIDERS: Visit Provider Internal Medicine Rheumatology
DX: G72.49 Other inflammatory and immune myopathies, not elsewhere classified (principal)
CPT/HCPCS: 36415; 82085; 82552; 82565; 84450; 84460; 85025; 85652; 86140

== ENCOUNTER 2024-09-27 13:26 | Outpatient (AMB) | payer MEDICARE, OTHER, SELFPAY ==
--- NOTE | 2024-09-27 13:35 | MHC.OFFVIS ---
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 Denies dyspnea, dysphagia, denies having difficulty getting up from seated position, rolling over from bed to standing, walking or recent falls. Denies any rashes. She is tolerating mycophenolate mofetil. [facility] Surgical History History of biopsy Family History Mother Stroke Father Stroke Maternal Aunt Stroke Sister Hyperthyroidism Kidney disease Social History Alcohol intake: current Alcohol intake frequency: holidays/special occasions only Alcohol type: wine Patient Tobacco Use Status: Never used Tobacco Physical Exam Vital Signs: Last Vital Signs Pulse 68 09/27/24 13:36 BP 100/60 09/27/24 13:36 Pulse Ox 98 09/27/24 13:36 Oxygen Delivery Method Room Air 09/27/24 13:36 BMI result Body Mass Index 30.0 Const Other: General: Comfortable CVS: RRR Respiratory: clear to auscultation bilaterally. Good respiratory effort Skin: No lesions seen MSK: 5/5 power upper extremity power. 5/5 power right hip flexure, left hip flexor 4/5 hip power. Rest of lower extremity is 5/5 power. No synovitis. Normal range of motion of upper extremity and lower extremityies. She is able to get up from seated position to standing position without using arms. She is able to squat. 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 She is tolerating mycophenolate mofetil. Right leg strength has improved today. Mild elevation in ALT with pending total CK. Inflammatory markers and aldolase are normal. 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 High dose prednisone caused facial flushing and was discontinued. 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 Avoiding methotrexate due to transaminitis with relapse. MMF 07/2024- Code(s): G72.49 - Other inflammatory and immune myopathies, not elsewhere classified Category: Medical Plan: Continue mycophenolate mofetil 500 mg twice a day. I will be in touch with patient after total CK result is back. I will consider increasing mycophenolate mofetil to 1000 mg twice a day. 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
[2024-09-27 13:36] VITALS: BP 100/60; PULSE 68; O2SAT 98
== END 2024-09-27 14:14 | disposition home or self-care (01) ==
LOC: HO.RHES 13:27
PROVIDERS: PCP Family Medicine; Visit Provider Internal Medicine Rheumatology
DX: G72.49 Other inflammatory and immune myopathies, not elsewhere classified (principal)
CPT/HCPCS: 99214; G2211

== ENCOUNTER → 2024-09-27 13:26 | Outpatient (BNVA) | payer MEDICARE, OTHER, SELFPAY | PROVIDERS: PCP Family Medicine; Visit Provider Internal Medicine Rheumatology | DX: G72.49 Other inflammatory and immune myopathies, not elsewhere classified (principal) | CPT/HCPCS: 99212 ==

== ENCOUNTER 2024-12-19 13:23 | Outpatient (REF) | payer MEDICARE, OTHER, SELFPAY ==
--- OUTSIDE RECORDS SUMMARY | 2024-12-19 14:13 | XMS_ITS | Clinical Summary ---
Author Organization [facility] Address [address] [place] [address] Phone Care Team Providers Care Photovoltaic Testing Technician Name Role Phone Gerardo Judge MD Primary Care Provide r Encounters Date Type Department Care Team Description 10/27/2024 Documentation Only [facility] [address] [place] [address] José Miguel Blanca [place] from Last 3 Months Social History Tobacco Use Types Packs/Day Years Used Date Smoking Tobacco: Never Assessed Comments Unknown Sex and Gender Information Value Date Recorded Sex Assigned at Not on file Legal Sex Female 12:32 PM EDT Gender Identity Not on file Sexual Orientation Not on file Plan of Treatment Upcoming Encounters Date Type Department Care Team (Late st Contact Info) Description 12/23/2024 2:30 PM EDT Office Visit [facility] [address] [place] [phone] Elier Kenny MD [address] [place] [address] [place] [address] Health Maintenance Due Date Last Done Comments Influenza Vaccine (#1) 2025 01/14/2018 Pneumococcal Vaccine: 50+ Years Completed 08/24/2015, 03/22/2014 Hepatitis B Vaccine Aged Out No longe r eligible based on patient's age to complete this topic Insurance Medicare [facility] Care Teams Photovoltaic Testing Technician Relationship Specialty Start Date End Date Gerardo Judge MD [place] [address] [address] [place], [place] PCP - General Family Medicine 10/27/24
--- OUTSIDE RECORDS SUMMARY | 2024-12-19 14:13 | XMS_ITS | Clinical Summary ---
Author Organization [facility] Address [address] [place] [address] Phone Care Team Providers Care Switchboard Operator Name Role Phone Gerardo Judge MD Primary Care Provide r Allergies Active Allergy Reactions Criticality Noted Date Comments Cetirizine 10/02/2023 Other Reaction(s): throat closing Medications alendronate (FOSAMAX) 70 MG tablet 04/29/2019 Active atorvastatin (LIPITOR) 20 MG tablet 03/07/2019 Active lisinopril (PRINIVIL,ZESTRI L) 40 MG tablet 04/29/2019 Act lizbeth multivitamin-min erals-lutein (CENTRUM SILVER) Tab Take 1 tablet by mouth daily. Active aspirin 81 MG EC tablet Take 81 mg by mouth daily. Active TOPROL XL 25 mg 24 hr tablet Take 25 mg by mouth. 07/07/2023 Active ondansetron (ZOFRAN) 4 MG tablet Take 4 mg by mouth. 05/23/2022 Active Active Problems No known active problems Immunizations Immunization Administration Dates Next Due COVID-19 (Pre-02/23) Moderna Vaccine, mRNA, PF 07/27/2020,06/29/2020 INFLUENZA, SPLIT VIRUS, TRIV ALENT W/ PRESERVATIVE IM 02/29/2016,02/01/2015,03/13/2014,02/11,05/12/2012,02/27/2010,01/24/2009 ,02/01/2008 Influenza Trivalent Adjuvant ed Preservative free IM 01/14/2018 Pneumococcal conjugate PCV13 08/24/2015 Pneumococcal polysaccharide PPSV23 03/22/2014 Td, unspecified formulation 10/31/2004 Tdap 06/12/2011 Zoster live 02/11/2013 Social History Tobacco Use Types Packs/Day Years Used Date Smoking Tobacco: Never Smokeless Tobacco: Never Tobacco Cessation:Counseling Given: Not Answered Alcohol Use Standard Drinks/Week Comments Not Currently 0 (1 standard drink = 0.6 oz pur e alcohol) Education Answer Date Recorded Are you interested in more education? Not on indio e 08/29/2022 Are you concerned about learning? Not on file 08/29/2022 No 08/29/2022 No 08/29/2022 Digital Access Answer Date Recorded No 09/27/2022 No 09/27/2022 Reliable internet access at home? Not on file 09/27/2022 Device with a working camera? Not on file Comments Unknown Sex and Gender Information Value Date Recorded Sex Assigned at Not on file Legal Sex Female 10:24 AM EST Gender Identity Not on file Sexual Orientation Not on file Last Filed Vital Signs Vital Sign Reading Time Taken Comments Blood Pressure 165/85 11/19/2023 9:19 AM EDT Pulse 68 11/19/2023 9:19 AM EDT Temperature 36.7 C (98.1 F) 11/19/2023 9:19 AM EDT Respiratory Rate 17 11/19/2023 9:19 AM EDT Oxygen Saturation 98% 11/19/2023 9:19 AM EDT Inhaled Oxygen Concentration - - Weight 75.8 kg (167 lb) 11/19/2023 9:19 AM EDT Height 160 cm (5' 3 ) 06/07/2019 11:08 AM EST Body Mass Index 29.58 06/07/2019 11:08 AM EST Plan of Treatment Health Maintenance Due Date Last Done Comments CREATININE LEVEL 1948 LIPID PANEL 1948 POTASSIUM LEVEL 1948 DEPRESSION SCREENING 1960 HEPATITIS C SCREENING 1966 ZOSTER VACCINES (2 of 3) 04/08/2013 02/11/2013 OSTEOPOROSIS SCREENING INITI AL (ONE-TIME) 2013 RSV VACCINE (1 - 1-dose 75+ series) 09/04/2023 COVID-19 VACCINE (4 - 2023-2 5 season) 2024 03/22/2021, 07/27/2020, 06/29/2020 Adult Td,Tdap Booster 02/01/2030 02/02/2020 , 06/12/2011, 10/31/2004 PNEUMOCOCCAL VACCINES (50+ years) Completed 08/24/2015, 03/22/2014 SMOKING STATUS SCREENING (On ce After 26 Yrs) Completed 11/19/2023 HEPATITIS A VACCINES Aged Out No long er eligible based on patient's age to complete this topic HIB VACCINES Aged Out No longer eligi ble based on patient's age to complete this topic MENINGOCOCCAL VACCINES (ACWY) Aged Out No longer eligible based on patient's age to complete this topic MENINGOCOCCAL VACCINES (B) Aged Out N o longer eligible based on patient's age to complete this topic Medical Devices Not on file Insurance MEDICARE PART A & B [facility] MEDICARE SUPPLEMENT MEDICARE PART A & B [facility] MEDICARE SUPPLEMENT MEDICARE PART A & B Member Subscriber Plan / Payer ( fective 2013-Present) Name:Angelika Knight Member ID:[id number] Relation to Subscriber:Self Name:Angelika Knight Subscriber ID:[id number] Payer ID:[id number] Group ID:Not on file Type:Medicare Address: [place] [address] [place] [phone] [facility] MEDICARE SUPPLEMENT MEDICARE PART A & B [employer] MEDICARE SUPPLEMENT MEDICARE PART A & B [employer] MEDICARE SUPPLEMENT MEDICARE PART A & B [employer] MEDICARE SUPPLEMENT MEDICARE PART A & B [employer] MEDICARE SUPPLEMENT MEDICARE PART A & B [employer] MEDICARE SUPPLEMENT MEDICARE PART A & B [employer] MEDICARE SUPPLEMENT Care Teams Switchboard Operator Relationship Specialty Start Date End Date Gerardo Judge MD [address] [address] PCP - General Family Medicine 10/02/23 Additional Source Comments The information contained in this document represents components of the legal health record. It is not the complete legal health record.[facility]
[2024-12-19 18:15] LABS: MANUAL DIFF FLAG NO
[2024-12-19 18:22] LABS: Hematocrit 39.5 % (37.0-47.0); Hemoglobin 12.7 g/dl (12.0-16.0); Imm Gran Abs Auto 0.01 X10*3/uL (0.00-0.03); Imm Gran Pct Auto 0.2 % (0.0-0.4); Lymphocytes Absolute Auto 1.7 X10*3/uL (1.2-4.9); Mean Corpuscular HGB Conc 32.2 g/dl (31.0-35.0); Mean Corpuscular Hemoglobin 30.2 pg (27.0-33.0); Mean Corpuscular Volume 94.0 fL (80.0-98.0); NRBC Abs Auto 0.000 X10*3/uL (0.0-0.012); NRBC Pct Auto 0.0 /100WBC (0.0-0.2); Platelet Count 276 X10*3/uL (160-400); Red Blood Count 4.20 X10*6/uL (4.20-5.50); White Blood Count 6.5 X10*3/uL (4.8-10.8)
[2024-12-19 18:39] LABS: Alanine Aminotransferase 26 U/L (0-31); Aspartate Amino Transferase 34 U/L (5-31); Estimated Glomerular Filt Rate 55
[2024-12-22 21:03] LABS: CK-BB None Detected (None Detected); CK-MB 3 % (<5); CK-MM 92 % (95-100); Creatine Kinase Isoenzyme Itrp MACRO CK TYPE 1; Creatine Kinase,Total,Serum 488 U/L (18-225)
== END 2024-12-19 13:24 | disposition home or self-care (01) ==
LOC: HO.WFDLDS 13:23
PROVIDERS: Visit Provider Internal Medicine Rheumatology
DX: G72.49 Other inflammatory and immune myopathies, not elsewhere classified (principal)
CPT/HCPCS: 36415; 82085; 82552; 82565; 84450; 84460; 85025; 85652; 86140

== ENCOUNTER 2024-12-29 07:58 | Outpatient (AMB) | payer MEDICARE, OTHER, SELFPAY ==
[2024-12-29 08:03] VITALS: BP 140/70; PULSE 68; O2SAT 98; BMI 30.2
--- NOTE | 2024-12-29 08:03 | A.OFFVIS_ITS ---
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 Symptoms resolved at this time. She has stopped doing exercises. She saw her track manager. No medicine adjustments were done. Recently she started getting back to doing her regular walking. She feels that her legs are heavy right worse than left. Denies fevers, dyspnea, pleurisy, dysphagia, rash, muscle pain. [facility] Surgical History History of biopsy Family History Mother Stroke Father Stroke Maternal Aunt Stroke Sister Hyperthyroidism Kidney disease Social History Alcohol intake: current Alcohol intake frequency: holidays/special occasions only Alcohol type: wine Patient Tobacco Use Status: Never used Tobacco Physical Exam Vital Signs: Last Vital Signs Pulse 68 12/29/24 08:03 BP 140/70 H 12/29/24 08:03 Pulse Ox 98 12/29/24 08:03 Oxygen Delivery Method Room Air 12/29/24 08:03 BMI result Body Mass Index 30.2 Const Other: General: Comfortable CVS: RRR Respiratory: clear to auscultation bilaterally. Good respiratory effort Skin: No lesions seen MSK: 5/5 power upper extremity power. Bilateral hip flexor 4/5 hip power. Rest of lower extremity is 5/5 power. No synovitis. Normal range of motion of upper extremity and lower extremities. 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 She is tolerating mycophenolate mofetil. She has developed mild proximal muscle weakness bilateral lower extremities this exam. She is symptomatic. She continues to have mild elevation in AST and CK. Up trending CK. Inflammatory markers and aldolase are normal. 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 I am ordering a liver ultrasound to evaluate for alternate causes of transaminitis ? Hepatic steatosis. Rarely CellCept causes transaminitis. My clinical impression is that her elevated CK in AST are related to relapse polymyositis disease. 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 High dose prednisone caused facial flushing and was discontinued. 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 Avoiding methotrexate due to transaminitis with relapse. MMF 07/2024- Code(s): G72.49 - Other inflammatory and immune myopathies, not elsewhere classified Category: Medical Plan: Increase mycophenolate mofetil to 1500 mg twice a day Labs for drug monitoring on high-risk medication reviewed with patient from this month. I am requesting that she repeat labs for disease and drug monitoring in 1 month Liver ultrasound ordered Return to clinic in 3 months or sooner if needed (2) Transaminitis: Code(s): R74.01 - Elevation of levels of liver transaminase levels Category: Medical Plan: See above Orders: Orders US abdomen aguilera w elastography Today R74.01 - Elevation of levels of liver transaminase levels Aspartate Amino Transferase 1 Month G72.49 - Other inflammatory and immune myopathies, not elsewhere classified, R74.01 - Elevation of levels of liver transaminase levels, Z79.899 - Other intermediate (current) drug therapy Aldolase 1 Month G72.49 - Other inflammatory and immune myopathies, not elsewhere classified, R74.01 - Elevation of levels of liver transaminase levels, Z79.899 - Other intermediate (current) drug therapy Complete Blood Count Auto Diff 1 Month G72.49 - Other inflammatory and immune myopathies, not elsewhere classified, R74.01 - Elevation of levels of liver transaminase levels, Z79.899 - Other long term acute care registered nurse (current) drug therapy Alanine Aminotransferase 1 Month G72.49 - Other inflammatory and immune myopathies, not elsewhere classified, R74.01 - Elevation of levels of liver transaminase levels, Z79.899 - Other intermediate (current) drug therapy Creatinine 1 Month G72.49 - Other inflammatory and immune myopathies, not elsewhere classified, R74.01 - Elevation of levels of liver transaminase levels, Z79.899 - Other intermediate (current) drug therapy C Reactive Protein 1 Month G72.49 - Other inflammatory and immune myopathies, not elsewhere classified, R74.01 - Elevation of levels of liver transaminase levels, Z79.899 - Other intermediate (current) drug therapy Erythrocyte Sedimentation Rate 1 Month G72.49 - Other inflammatory and immune myopathies, not elsewhere classified, R74.01 - Elevation of levels of liver transaminase levels, Z79.899 - Other intermediate (current) drug therapy Creatine Kinase Total 1 Month G72.49 - Other inflammatory and immune myopathies, not elsewhere classified, R74.01 - Elevation of levels of liver tra nsaminase levels, Z79.899 - Other intermediate (current) drug therapy Medications: Changed From mycophenolate mofetil 1,000 mg (2 x 500 mg) PO BID 90 days 360 tabs 0RF To mycophenolate mofetil 1,500 mg (3 x 500 mg) PO BID 540 tabs 0RF 90 days Coding Level of Care Code Est Pt Level 4 (82750) Complex EM visit Add On G2211 Diagnoses Autoimmune necrotizing myopathy G72.49 Transaminitis R74.01
--- OUTSIDE RECORDS SUMMARY | 2024-12-29 08:07 | XMS_ITS | Clinical Summary ---
Author Organization [facility] Address [address] [place] [address] Phone Care Team Providers Care Ladle Repairer Name Role Phone Gerardo Judge MD Primary Care Provide r Allergies Active Allergy Reactions Criticality Noted Date Comments Cetirizine 10/02/2023 Other Reaction(s): throat closing Medications amLODIPine (NORVASC) 2.5 MG tablet Take 2.5 mg by mouth 06/07/2024 Active aspirin (ST AMAN) 81 MG EC tablet Take 81 mg by mouth in the morning. Active Zetia 10 MG tablet Take 10 mg by mouth 06/08/2024 Active lisinopril 40 MG tablet Take 1 tablet by mouth 04/29/2019 Active LUTEIN PO Take 1 tablet by mouth in the morning. Active metoprolol succinate XL (Toprol XL) 25 MG 24 hr tablet Take 25 mg by mouth 07/07/2023 Active mycophenolate (CELLCEPT) 500 MG tablet 1,000 mg 07/29/2024 Active Active Problems Problem Noted Date Diagnosed Date Hypertension 12/23/2024 Chronic kidney disease stage 3 12/23/2024 Encounters Date Type Department Care Team Description 12/23/2024 2:30 PM EDT Office Visit [facility] [address] [place] [address] Elier Kenny MD Stage 3a chronic kidney disease (HCC) (Primary Dx); Essential (primary) hypertension 10/27/2024 Documentation Only [facility] [place], [address] [place] [address] José Miguel Blanca MA from Last 3 Months Immunizations Immunization Administration Dates Next Due Influenza Whole 06/12/2011 Influenza, Trivalent, Adjuvanted 01/14/2018 Moderna SARS-COV-2 03/22/2021,07/27/2020, 021 Pneumococcal Conjugate 13-Valent 08/24/2015 Pneumococcal Polysaccharide 03/22/2014 Td, Unspecified 02/02/2020,10/31/2004 Tdap 06/12/2011 Zoster 02/11/2013 Family History Medical History Relation Comments Cancer Father Hypertension Father Stroke Father Stroke Maternal Grandmother Hypertension Mother Stroke Mother Kidney disease Paternal Grandfather Hypertension Paternal Grandmother Stroke Paternal Grandmother Kidney disease Sister Relation Status Comments Father Alive Maternal Grandmother Alive Mother Alive Paternal Grandfather Alive Paternal Grandmother Alive Sister Alive Social History Tobacco Use Types Packs/Day Years Used Date Smoking Tobacco: Never Smokeless Tobacco: Never Tobacco Cessation:Counseling Given: Not Answered Alcohol Use Standard Drinks/Week Comments Yes 0 (1 standard drink = 0.6 oz pur e alcohol) Social occasions Comments Unknown Sex and Gender Information Value Date Recorded Sex Assigned at Not on file Legal Sex Female 12:32 PM EDT Gender Identity Not on file Sexual Orientation Not on file Plan of Treatment Upcoming Encounters Date Type Department Care Team (Late st Contact Info) Description 07/06/2025 10:45 AM EST Office Visit [facility] [address] [place] [phone] Elire Kenny MD [address] [place] [address] [place] [address] Health Maintenance Due Date Last Done Comments Influenza Vaccine (#1) 2025 8, 02/29/2016, 02/01/2015, Additional history exists Pneumococcal Vaccine: 50+ Years Completed 08/24/2015, 03/22/2014 Hepatitis B Vaccine Aged Out No longe r eligible based on patient's age to complete this topic Insurance Medicare [facility] Care Teams Ladle Repairer Relationship Specialty Start Date End Date Gerardo Judge MD [place] [address] [address] [place], [place] PCP - General Family Medicine 10/27/24
--- OUTSIDE RECORDS SUMMARY | 2024-12-29 08:08 | XMS_ITS | Encounter Summary ---
Author Organization [facility], Address [address] [place] [address] Phone Care Team Providers Care Desk Attendant Name Role Phone Gerardo Judge MD Primary Care Provide r Encounter Details Date Type Department Care Team (Late st Contact Info) Description 10/27/2024 Documentation Only [facility], [address] [place] [place] [address] [place] [address] [place] [phone] Social History Tobacco Use Types Packs/Day Years Used Date Smoking Tobacco: Never Assessed Comments Unknown Sex and Gender Information Value Date Recorded Sex Assigned at Not on file Legal Sex Female 12:32 PM EDT Gender Identity Not on file Sexual Orientation Not on file documented as of this encounter Plan of Treatment Upcoming Encounters Date Type Department Care Team (Late st Contact Info) Description 07/06/2025 10:45 AM EST Office Visit [facility], - [address] [place] [phone] Elier Kenny MD [address] [place] [address] [place] [address] documented as of this encounter Visit Diagnoses Not on filedocumented in this encounter Care Teams Desk Attendant Relationship Specialty Start Date End Date Gerardo Judge MD [facility] [address] [place], [place] PCP - General Family Medicine 10/27/24 documented as of this encounter
== END 2024-12-29 08:42 | disposition home or self-care (01) ==
LOC: HO.RHES 07:59
PROVIDERS: PCP Family Medicine; Visit Provider Internal Medicine Rheumatology
DX: G72.49 Other inflammatory and immune myopathies, not elsewhere classified (principal); R74.01 Elevation of levels of liver transaminase levels
CPT/HCPCS: 99214; G2211

== ENCOUNTER → 2024-12-29 07:58 | Outpatient (BNVA) | payer MEDICARE, OTHER, SELFPAY | PROVIDERS: PCP Family Medicine; Visit Provider Internal Medicine Rheumatology | DX: G72.49 Other inflammatory and immune myopathies, not elsewhere classified (principal); R74.01 Elevation of levels of liver transaminase levels | CPT/HCPCS: 99212 ==

== ENCOUNTER 2025-01-31 10:20 | Outpatient (REF) | payer MEDICARE, OTHER, SELFPAY ==
--- OUTSIDE RECORDS SUMMARY | 2025-01-31 11:30 | XMS_ITS | Encounter Summary ---
Author Organization [facility], Address [address] [place] [address] Phone Care Team Providers Care Employment Educational Coord Name Role Phone Gerardo Judge MD Primary Care Provide r Encounter Details Date Type Department Care Team (Late st Contact Info) Description 10/27/2024 Documentation Only [facility], [address] [place] [address] [place] [address] [place] [phone] Social History Tobacco Use Types Packs/Day [...] Visit [facility], - [place] [address] [place] [phone] Elier Kenny MD [address] [place] [address] [place] [address] documented as of this encounter Visit Diagnoses Not on filedocumented in this encounter Care Teams Employment Educational Coord Relationship Specialty Start Date End Date Gerardo Judge MD [facility] [address] [place], [place] PCP - General Family Medicine 10/27/24 documented as of this encounter
--- OUTSIDE RECORDS SUMMARY | 2025-01-31 11:30 | XMS_ITS | Clinical Summary ---
Author Organization [facility] Address [address] [place] [address] Phone Care Team Providers Care C Wpf Developer Name Role Phone Gerardo Judge MD Primary [...] (2 of 3) 04/08/2013 02/11/2013 OSTEOPOROSIS SCREENING INITIAL (ONE-TIME) 2013 RSV VACCINE (1 - 1-dose 75+ series) 09/04/2023 INFLUENZA VACCINE (#1) 2024 3, 01/31/2022, 02/06/2021, Additional history exists COVID-19 VACCINE (2024- season) 2025 03/22/2021, 07/27/2020, 06/29/2020 Adult Td,Tdap Booster 02/01/2030 02/02/2020 , 06/12/2011, 10/31/2004 PNEUMOCOCCAL VACCINES (50+ years) Completed 08/24/2015, 03/22/2014 SMOKING STATUS SCREENING (Once After 26 Yrs) Completed 11/19/2023 HEPATITIS A [...] file Insurance MEDICARE PART A & B [facility] MEDICARE SUPPLEMENT MEDICARE PART A & B [email or web address] MEDICARE SUPPLEMENT MEDICARE PART A & B [facility] SUPPLE[facility] MEDICARE PART A & B [employer] MEDICARE SUPPLEMENT MEDICARE PART A & B [employer] MEDICARE SUPPLEMENT MEDICARE PART A & B [employer] MEDICARE SUPPLEMENT MEDICARE PART A & B [employer] MEDICARE SUPPLEMENT MEDICARE PART A & B [facility] MEDICARE SUPPLEMENT MEDICARE PART A & B [employer] [facility] MEDICARE SUPPLEMENT Care Teams C Wpf Developer Relationship Specialty Start Date End Date Gerardo Judge MD [address] [address] PCP - General Family Medicine 10/02/23 Additional Source Comments The information contained in this document represents components of the legal health record. It is not the complete legal health record.[facility]
--- OUTSIDE RECORDS SUMMARY | 2025-01-31 11:30 | XMS_ITS | Clinical Summary ---
Author Organization [facility] Address [address] [place] [address] Phone Care Team Providers Care V Belt Builder Name Role Phone Gerardo Judge MD Primary [...] Office Visit [facility] [address] [place] [address] Elier Kenny MD Stage 3a chronic kidney disease (HCC) (Primary Dx); Essential (primary) hypertension from Last 3 Months Immunizations Immunization Administration [...] Visit [facility] [address] [place] [phone] Elier Kenny MD [address] [place] [address] Health Maintenance Due Date Last Done Comments Influenza Vaccine (#1) 2025 8, 02/29/2016, 02/01/2015, Additional history exists Pneumococcal Vaccine: 50+ Years Completed 08/24/2015, 03/22/2014 Hepatitis B Vaccine Aged Out No longe r eligible based on patient's age to complete this topic Insurance Medicare [facility] Care Teams V Belt Builder Relationship Specialty Start Date End Date Gerardo Judge MD [facility] [address] [place], [place] PCP - General Family Medicine 10/27/24
[2025-01-31 11:38] LABS: MANUAL DIFF FLAG NO
[2025-01-31 11:57] LABS: Hematocrit 38.0 % (37.0-47.0); Hemoglobin 12.3 g/dl (12.0-16.0); Imm Gran Abs Auto 0.01 X10*3/uL (0.00-0.03); Imm Gran Pct Auto 0.2 % (0.0-0.4); Lymphocytes Absolute Auto 1.6 X10*3/uL (1.2-4.9); Mean Corpuscular HGB Conc 32.4 g/dl (31.0-35.0); Mean Corpuscular Hemoglobin 30.1 pg (27.0-33.0); Mean Corpuscular Volume 93.1 fL (80.0-98.0); NRBC Abs Auto 0.000 X10*3/uL (0.0-0.012); NRBC Pct Auto 0.0 /100WBC (0.0-0.2); Platelet Count 255 X10*3/uL (160-400); Red Blood Count 4.08 X10*6/uL (4.20-5.50); White Blood Count 4.9 X10*3/uL (4.8-10.8)
[2025-01-31 12:07] LABS: Alanine Aminotransferase 47 U/L (0-31); Aspartate Amino Transferase 38 U/L (5-31); Estimated Glomerular Filt Rate > 60
== END 2025-01-31 10:21 | disposition home or self-care (01) ==
LOC: HO.WFDLDS 10:20
PROVIDERS: Visit Provider Internal Medicine Rheumatology
DX: R74.01 Elevation of levels of liver transaminase levels (principal); G72.49 Other inflammatory and immune myopathies, not elsewhere classified; Z79.899 Other long term (current) drug therapy
CPT/HCPCS: 36415; 82085; 82550; 82565; 84450; 84460; 85025; 85652; 86140

== ENCOUNTER 2025-03-10 10:04 | Outpatient (REF) | payer MEDICARE, OTHER, SELFPAY ==
--- NOTE | ~2025-03-10 | US_ITS ---
EXAMINATION: US ABDOMEN LIMITED WITH LIVER ELASTOGRAPHY CLINICAL INFORMATION: Evaluation of liver transaminases levels COMPARISON: None available. TECHNIQUE: Real-time imaging of the abdominal viscera. Noninvasive ultrasound liver fibrosis assessment is performed using Riaz ElastPQ point quantification shear wave elastography (pSWE) with a 5 MHz transducer. Multiple elastography samples are obtained. FINDINGS: PANCREAS: The visualized pancreatic head and body are normal in appearance. The remainder of the pancreas is obscured from visualization by the overlying bowel gas. LIVER: The liver demonstrates normal size, contour. Mild increased parenchymal echogenicity. No focal lesion or intrahepatic biliary duct dilatation. The right lobe measures 14.3 cm in length. The left lobe measures 8 cm in length. Shear wave elastography provides a median stiffness of 1.44 m/s (reference: normal median stiffness is 0.81 - 1.22 m/s). The IQR/median stiffness to assess sampling precision is 0.24 (reference: optimal IQR/median stiffness is under 0.3). GALLBLADDER: The gallbladder is physiologically distended without evidence of stones, sludge, polyps, wall thickening or pericholecystic fluid. COMMON BILE DUCT: Normal in caliber measuring 0.2 cm in diameter. RIGHT KIDNEY: No hydronephrosis. No renal calculi or focal parenchymal lesions. The kidney measures 8.8 cm in maximum dimension. FREE FLUID: None seen. US/US abdomen aguilera w elastography IMPRESSION: 1. There is generalized increase in hepatic echotexture, consistent with fatty infiltration or hepatocellular disease. Please correlate clinically. No focal hepatic mass or intrahepatic biliary duct dilatation is seen. 2. Elastography: Median stiffness 1.44 m/s *Liver Stiffness less than 1.7 m/s: In the absence of other known clinical signs, rules out compensated advanced chronic liver disease. REFERENCE: Society of Radiologists in Ultrasound Liver Stiffness Thresholds (2020): LIVER STIFFNESS THRESHOLDS: *Liver Stiffness equal or less than 1.3 m/s: High probability of being normal. *Liver Stiffness less than 1.7 m/s: In the absence of other known clinical signs, rules out compensated advanced chronic liver disease. *Liver Stiffness 1.7-2.1 m/s: Suggestive of compensated advanced chronic liver disease but need further test for confirmation. *Liver Stiffness over 2.1 m/s: Rules in compensated advanced chronic liver disease. *Liver Stiffness over 2.4 m/s: Suggestive of clinically significant portal hypertension. QUALITY OF DATA SET: *IQR/Median value equal or less than 0.15 implies a quality data set. *IQR/Median value over 0.15 implies a poor quality data set. SIGNIFICANT CHANGE FROM PRIOR EXAM: Significant change if liver stiffness measurement is 10% or greater from prior exam. OTHER CONSIDERATIONS: The stage of liver fibrosis may be overestimated in the setting of acute hepatitis, liver inflammation, elevated liver function tests, hepatic vascular congestion, obstructive cholestasis, non-fasting state, and infiltrative diseases such as amyloidosis and lymphoma. In some patients with NAFLD, the liver stiffness thresholds for compensated advanced chronic liver disease may be lower. In causes other than viral hepatitis and NAFLD, liver stiffness thresholds are not well established. Electronically signed by: Farooq Luu MD 03/10/2025 04:37 PM [facility]
--- OUTSIDE RECORDS SUMMARY | 2025-03-10 11:51 | XMS_ITS | Clinical Summary ---
Author Organization [facility] Address [address] [place] [address] Phone Care Team Providers Care Litigation Assistant Name Role Phone Gerardo Judge MD Primary [...] on patient's age to complete this topic IPV VACCINES Aged Out No longer eligi ble based on patient's age to complete this topic MENINGOCOCCAL VACCINES (ACWY) Aged Out No longer eligible based on patient's age to complete this topic MENINGOCOCCAL VACCINES (B) Aged Out N o longer eligible based on patient's age to complete this topic Medical Devices Not on file Insurance MEDICARE PART A & B [facility] MEDICARE SUPPLEMENT MEDICARE PART A & B Active [employer] MEDICARE SUPPLEMENT MEDICARE PART A & B Active [employer]SP MEDICARE SUPPLEMENT MEDICARE PART A & B Active DSP MEDICARE SUPPLEMENT MEDICARE PART A & B Active [employer]SP MEDICARE SUPPLEMENT MEDICARE PART A & B Active DSP MEDICARE SUPPLEMENT MEDICARE PART A & B [facility] MEDICARE SUPPLEMENT MEDICARE PART A & B [facility] MEDICARE SUPPLEMENT MEDICARE PART A & B [facility] MEDICARE SUPPLEMENT Care Teams Litigation Assistant Relationship Specialty Start Date End Date Gerardo Judge MD [address] [address] PCP - General Family Medicine 10/02/23 Additional Source Comments The information contained in this document represents components of the legal health record. It is not the complete legal health record.[facility]
== END 2025-03-10 10:05 | disposition home or self-care (01) ==
LOC: HO.US 10:04
PROVIDERS: PCP Family Medicine; Visit Provider Internal Medicine Rheumatology
DX: R74.01 Elevation of levels of liver transaminase levels (principal)
CPT/HCPCS: 76705; 76981

== ENCOUNTER → 2025-03-10 10:15 | Outpatient (BNV) | payer MEDICARE, OTHER, SELFPAY | PROVIDERS: PCP Family Medicine; Visit Provider Radiology Diagnostic Ultrasound | DX: R74.01 Elevation of levels of liver transaminase levels (principal) | CPT/HCPCS: 76705 ==

== ENCOUNTER 2025-03-22 11:10 | Outpatient (REF) | payer MEDICARE, OTHER, SELFPAY ==
[2025-03-22 14:13] LABS: MANUAL DIFF FLAG NO
[2025-03-22 14:17] LABS: Hematocrit 38.1 % (37.0-47.0); Hemoglobin 12.1 g/dl (12.0-16.0); Imm Gran Abs Auto 0.02 X10*3/uL (0.00-0.03); Imm Gran Pct Auto 0.3 % (0.0-0.4); Lymphocytes Absolute Auto 1.8 X10*3/uL (1.2-4.9); Mean Corpuscular HGB Conc 31.8 g/dl (31.0-35.0); Mean Corpuscular Hemoglobin 30.4 pg (27.0-33.0); Mean Corpuscular Volume 95.7 fL (80.0-98.0); NRBC Abs Auto 0.000 X10*3/uL (0.0-0.012); NRBC Pct Auto 0.0 /100WBC (0.0-0.2); Platelet Count 248 X10*3/uL (160-400); Red Blood Count 3.98 X10*6/uL (4.20-5.50); White Blood Count 6.2 X10*3/uL (4.8-10.8)
[2025-03-22 15:49] LABS: Alanine Aminotransferase 36 U/L (0-31); Aspartate Amino Transferase 33 U/L (5-31); Estimated Glomerular Filt Rate 44
--- OUTSIDE RECORDS SUMMARY | 2025-03-22 22:02 | XMS_ITS | Clinical Summary ---
Author Organization [facility] Address [address] [place] [address] Phone Care Team Providers Care Site Surveyor Name Role Phone Gerardo Judge MD Primary [...] file Insurance MEDICARE PART A & B [facility] MEDICARE SUPPLEMENT MEDICARE PART A & B [employer] MEDICARE SUPPLEMENT MEDICARE PART A & B [facility] SU[facility] MEDICARE PART A & B [employer] MEDICARE SUPPLEMENT MEDICARE PART A & B [employer] MEDICARE SUPPLEMENT MEDICARE PART A & B [employer] MEDICARE SUPPLEMENT MEDICARE PART A & B [employer] MEDICARE SUPPLEMENT MEDICARE PART A & B [facility] MEDICARE SUPPLEMENT MEDICARE PART A & B [employer] [facility] MEDICARE SUPPLEMENT Care Teams Site Surveyor Relationship Specialty Start Date End Date Gerardo Judge MD [address] [address] PCP - General Family Medicine 10/02/23 Additional Source Comments The information contained in this document represents components of the legal health record. It is not the complete legal health record.[facility]
--- OUTSIDE RECORDS SUMMARY | 2025-03-22 22:02 | XMS_ITS | Encounter Summary ---
Author Organization [facility], Address [address] [place] [address] Phone Care Team Providers Care Soil Science Technical Officer Name Role Phone Gerardo Judge MD Primary Care Provide r Encounter Details Date Type Department Care Team (Late st Contact Info) Description 10/27/2024 Documentation Only [facility], [address] [place] [address] [place] [address] [place] [phone] Social History Tobacco Use Types Packs/Day [...] Visit [facility], - Marco [address] [place] [phone] Elier Kenny MD [address] [place] [address] [place] [address] documented as of this encounter Visit Diagnoses Not on filedocumented in this encounter Care Teams Soil Science Technical Officer Relationship Specialty Start Date End Date Gerardo Judge MD [facility] [address] [place], [place] PCP - General Family Medicine 10/27/24 documented as of this encounter
--- OUTSIDE RECORDS SUMMARY | 2025-03-22 22:02 | XMS_ITS | Clinical Summary ---
Author Organization [facility] Address [address] [place] [address] Phone Care Team Providers Care Income Auditor Name Role Phone Gerardo Judge MD Primary [...] Office Visit [facility] [address] [place] [address] Elier Kenny MD Stage 3a [...] Visit [facility] [address] [place] [phone] Elier Kenny MD [address] [place] [address] Health Maintenance Due Date Last Done Comments Influenza Vaccine (#1) 2025 8, 02/29/2016, 02/01/2015, Additional history exists Pneumococcal Vaccine: 50+ Years Completed 08/24/2015, 03/22/2014 Hepatitis B Vaccine Aged Out No longe r eligible based on patient's age to complete this topic Insurance Medicare [facility] Care Teams Income Auditor Relationship Specialty Start Date End Date Gerardo Judge MD [facility] [address] [place], [place] PCP - General Family Medicine 10/27/24
== END 2025-03-22 11:11 | disposition home or self-care (01) ==
LOC: HO.WFDLDS 11:10
PROVIDERS: Referring Provider Physician Assistant Medical; Visit Provider Internal Medicine Rheumatology
DX: G72.49 Other inflammatory and immune myopathies, not elsewhere classified (principal); Z79.899 Other long term (current) drug therapy
CPT/HCPCS: 36415; 82085; 82550; 82565; 84443; 84450; 84460; 85025; 85652; 86140

== ENCOUNTER 2025-04-06 09:15 | Outpatient (AMB) | payer MEDICARE, OTHER, SELFPAY ==
--- NOTE | 2025-04-06 09:16 | A.OFFVIS_ITS ---
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 She has been experiencing diarrhea and abdominal cramping for at least a month and a half. Symptoms started intermittently in January. She has lost at least 10 lb in the last month. She also recently did a 2 week Holter monitor test because she was experiencing palpitations with exertion/activity. [facility] Surgical History History of biopsy Family History Mother Stroke Father Stroke Maternal Aunt Stroke Sister Hyperthyroidism Kidney disease Social History Alcohol intake: current Alcohol intake frequency: holidays/special occasions only Alcohol type: wine Patient Tobacco Use Status: Never used Tobacco Physical Exam Vital Signs: Last Vital Signs Pulse 87 04/06/25 09:17 BP 130/70 04/06/25 09:17 Pulse Ox 98 04/06/25 09:17 Oxygen Delivery Method Room Air 04/06/25 09:17 BMI result Body Mass Index 28.6 Const Other: General: Comfortable CVS: RRR Respiratory: clear to auscultation bilaterally. Good respiratory effort Skin: No lesions seen MSK: 5/5 power upper extremity power and lower extremities. No synovitis. Normal range of motion of upper extremity and lower extremities. 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 Slight improvement of liver enzymes and muscle enzyme CK and clinical exam on higher dose of mycophenolate. Since increasing the dose she has had abdominal cramping and diarrhea. We discussed changing mycophenolate mofetil to Myfortic due to better GI safety profile. She will have labs in 1 month after starting Myfortic. In the past she has had transaminitis secondary to autoimmune necrotizing myopathy (initial presentation). She also has hepatic steatosis on liver ultrasound from March 2027, which can contribute to elevated liver enzymes. She has been referred to GI for further evaluation. 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 High dose prednisone caused facial flushing and was discontinued. 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 Avoiding methotrexate due to transaminitis with relapse. MMF 07/2024- Code(s): G72.49 - Other inflammatory and immune myopathies, not elsewhere classified Category: Medical Plan: Start mycophenolate mofetil Start Myfortic 180 mg b.i.d.. Labs due 1 month after starting Myfortic Labs for disease monitoring up-to-date. GI evaluation for transaminitis Return to clinic in 3 months (2) Transaminitis: Code(s): R74.01 - Elevation of levels of liver transaminase levels Category: Medical Plan: See above (3) Hepatic steatosis: Code(s): K76.0 - Fatty (change of) liver, not elsewhere classified Category: Medical Plan: See above Orders: Orders Alanine Aminotransferase 1 Month G72.49 - Other inflammatory and immune myopathies, not elsewhere classified, K76.0 - Fatty (change of) liver, not elsewhere classified, R74.01 - Elevation of levels of liver transaminase levels Aspartate Amino Transferase 1 Month G72.49 - Other inflammatory and immune myopathies, not elsewhere classified, K76.0 - Fatty (change of) liver, not elsewhere classified, R74.01 - Elevation of levels of liver transaminase levels Creatinine 1 Month G72.49 - Other inflammatory and immune myopathies, not elsewhere classified, K76.0 - Fatty (change of) liver, not elsewhere classified, R74.01 - Elevation of levels of liver transaminase levels Complete Blood Count Auto Diff 1 Month G72.49 - Other inflammatory and immune myopathies, not elsewhere classified, K76.0 - Fatty (change of) liver, not elsewhere classified, R74.01 - Elevation of levels of liver transaminase levels Creatine Kinase Total 1 Month G72.49 - Other inflammatory and immune myopathies, not elsewhere classified, K76.0 - Fatty (change of) liver, not elsewhere classified, R74.01 - Elevation of levels of liver transaminase levels Aldolase 1 Month G72.49 - Other inflammatory and immune myopathies, not elsewhere classified, K76.0 - Fatty (change of) liver, not elsewhere classified, R74.01 - Elevation of levels of liver transaminase levels Medications: New mycophenolate sodium (Myfortic) 180 mg PO BID 60 tabs 0RF 30 days Discontinued mycophenolate mofetil Discontinued Reason: Doctor's Order 1,500 mg (3 x 500 mg) PO BID 90 days 540 tabs 0RF Coding Level of Care Code Est Pt Level 4 (34942) Complex visit Add On G2211 Diagnoses Autoimmune necrotizing myopathy G72.49 Transaminitis R74.01 Hepatic steatosis K76.0
[2025-04-06 09:17] VITALS: BP 130/70; PULSE 87; O2SAT 98; BMI 28.6
--- OUTSIDE RECORDS SUMMARY | 2025-04-06 10:17 | XMS_ITS | Encounter Summary ---
Author Organization [facility], Address [address] [place] [address] Phone Care Team Providers Care Building Mechanic Name Role Phone Gerardo Judge MD Primary Care Provide r Encounter Details Date Type Department Care Team (Late st Contact Info) Description 10/27/2024 Documentation Only [facility], [address] [place] [address] [place] [address] [place] [phone] Social History Tobacco Use Types Packs/Day [...] Visit [facility], - [address] [place] [phone] Elier Kenny MD [address] [place] [address] [place] [address] documented as of this encounter Visit Diagnoses Not on filedocumented in this encounter Care Teams Building Mechanic Relationship Specialty Start Date End Date Gerardo Judge MD [facility] [address] [place], [place] PCP - General Family Medicine 10/27/24 documented as of this encounter
--- OUTSIDE RECORDS SUMMARY | 2025-04-06 10:17 | XMS_ITS | Clinical Summary ---
Author Organization [facility], Address [address] [address] Phone Care Team Providers Care Sand Control Worker Name Role Phone Gerardo Judge MD Primary [...] 12/23/2024 Chronic kidney disease stage 3 12/23/2024 Immunizations Immunization Administration Dates Next Due Influenza [...] Visit [facility] [place] [place] - [address] [facility] [address] [place] [phone] Elier Kenny MD [address] [place] [phone] Health Maintenance Due Date Last Done Comments Influenza Vaccine (#1) 2025 8, 02/29/2016, 02/01/2015, Additional history exists Pneumococcal Vaccine: 50+ Years Completed 08/24/2015, 03/22/2014 Hepatitis B Vaccine Aged Out No longe r eligible based on patient's age to complete this topic Insurance Medicare [employer] Care Teams Sand Control Worker Relationship Specialty Start Date End Date Gerardo Judge MD [place] [address] [place], [place] PCP - General Family Medicine 10/27/24
--- OUTSIDE RECORDS SUMMARY | 2025-04-06 10:17 | XMS_ITS | Clinical Summary ---
Author Organization [facility] Address [address] [place] [address] Phone Care Team Providers Care Manager Field Name Role Phone Gerardo Judge MD Primary [...] file Insurance MEDICARE PART A & B [facility] MEDICARE SUPPLEMENT MEDICARE PART A & B [employer] MEDICARE SUPPLEMENT MEDICARE PART A & B [employer] MEDICARE SUPPLEMENT MEDICARE PART A & B [employer] MEDICARE SUPPLEMENT MEDICARE PART A & B [employer] MEDICARE SUPPLEMENT MEDICARE PART A & B [employer] MEDICARE SUPPLEMENT MEDICARE PART A & B [employer] MEDICARE SUPPLEMENT MEDICARE PART A & B [facility] MEDICARE SUPPLEMENT MEDICARE PART A & B [employer] [facility] MEDICARE SUPPLEMENT Care Teams Manager Field Relationship Specialty Start Date End Date Gerardo Judge MD [address] [address] PCP - General Family Medicine 10/02/23 Additional Source Comments The information contained in this document represents components of the legal health record. It is not the complete legal health record.[facility]
== END 2025-04-06 09:51 | disposition home or self-care (01) ==
LOC: HO.RHES 09:15
PROVIDERS: PCP Family Medicine; Visit Provider Internal Medicine Rheumatology
DX: G72.49 Other inflammatory and immune myopathies, not elsewhere classified (principal); R74.01 Elevation of levels of liver transaminase levels; K76.0 Fatty (change of) liver, not elsewhere classified
CPT/HCPCS: 99214; G2211

== ENCOUNTER → 2025-04-06 09:15 | Outpatient (BNVA) | payer MEDICARE, OTHER, SELFPAY | PROVIDERS: PCP Family Medicine; Visit Provider Internal Medicine Rheumatology | DX: G72.49 Other inflammatory and immune myopathies, not elsewhere classified (principal); R74.01 Elevation of levels of liver transaminase levels; K76.0 Fatty (change of) liver, not elsewhere classified | CPT/HCPCS: 99212 ==